=== PATIENT | male | born 1955 | race Caucasian/White ===

== ENCOUNTER 2019-03-17 10:41 | Emergency (ER) | payer MEDICARE, OTHER ==
[2019-03-17 11:09] LABS: BASOPHILS % (AUTO) 0.2 %; EOSINOPHILS % (AUTO) 0.1 %; HGB - HEMOGLOBIN 14.7 g/dL (14.0-18.0); LYMPHOCYTES # (AUTO) 0.8 10^3/uL (1.5-3.5); LYMPHOCYTES % (AUTO) 6.4 %; MEAN PLATELET VOLUME 9.7 fL (7.4-11.4); MONOCYTES # (AUTO) 0.6 10^3/uL (0.0-1.0); MONOCYTES % (AUTO) 4.6 %; NEUTROPHILS # (AUTO) 10.7 10^3/uL (1.5-6.6); NEUTROPHILS % (AUTO) 88.4 %; PLT - PLATELET COUNT 231 10^3/uL (130-450); RED BLOOD COUNT 4.32 10^6/uL (4.70-6.10); RED CELL DISTRIBUTION WIDTH 12.3 % (12.0-15.0); WHITE BLOOD COUNT 12.1 x10^3/uL (4.8-10.8)
--- NOTE | 2019-03-17 11:21 | ED Physician Documentation ---
PD HPI SYNCOPE - Stated complaint Stated Complaint: MED REACTION/SEIZURE LIKE - Chief complaint Chief Complaint: General - History obtained from History obtained from: Patient - History of Present Illness Witnessed: Witnessed Timing - onset: How many minutes ago (30), Today Duration: Minutes (1-2) Preceding symptoms: Vision changes, Nausea / vomiting (felt mild nausea and lightheaded. Then awoke with head on table. [place] more nausetated after taht and vomiting several minutes later. Started feeling better after that.), Light headed Associated symptoms: Incontinant of stool, Nausea / vomiting. No: Seizure, Headache, Chest pain, Dyspnea, Abdominal pain Contributing factors: Recent med change (he had root canal and dental work yesterday. Rx Clindamycin for gum infection and norco for pain. He took those this morning and then was sitting at table to have breakfast. Had a few bites of it and then had abrupt vision cloudiness, feeling lightheaded and says his eyes rolled back and then he slumped head forward and was unresponsive for 1-2 minutes. Awake and conversant by time of EMS arrival. He did have nausea and then emesis once after awakening. Feeling improved enroute.) Review of Systems Constitutional: denies: Fever, Chills Nose: denies: Rhinorrhea / runny nose, Congestion Throat: reports: Dental pain / toothache. denies: Sore throat Respiratory: denies: Cough GI: reports: Nausea, Vomiting (once after the syncopal episode). denies: Abdominal Pain, Diarrhea Skin: denies: Rash, Lesions Neurologic: reports: Generalized weakness, Syncope. denies: Focal weakness, Numbness, Confused, Headache, Head injury PD PAST MEDICAL HISTORY - Past Medical History Past Medical History: No Cardiovascular: None Respiratory: None Neuro: None Endocrine/Autoimmune: None - Past Surgical History Past Surgical History: Yes - Present Medications Home Medications: Ambulatory Orders Medication Instructions Recorded Confirmed Amoxicillin 875 mg PO BID #14 tablet 03/17/19 - Allergies Allergies/Adverse Reactions: Allergies Allergy/AdvReac Type Severity Reaction Status Date / Time Latex, Natural Rubber Allergy Rash Verified 03/17/19 10:50 clindamycin AdvReac Unknown Verified 03/17/19 15:38 hydrocodone AdvReac Unknown Verified 03/17/19 15:38 - Social History Does the pt smoke?: No Smoking Status: Never smoker Does the pt drink ETOH?: No Does the pt have substance abuse?: No - Immunizations Immunizations are current?: Yes PD ED PE NORMAL - Vitals Vital signs reviewed: Yes - General General: Alert and oriented X 3, No acute distress, Well developed/nourished - HEENT HEENT: Atraumatic, PERRL, Moist mucous membranes, Pharynx benign - Neck Neck: Supple, no meningeal sign, No adenopathy - Cardiac Cardiac: RRR, No murmur - Respiratory Respiratory: Clear bilaterally - Abdomen Abdomen: Soft, Non tender - Male Male : Deferred - Rectal Rectal: Deferred - Back Back: No CVA TTP - Derm Derm: Normal color, Warm and dry - Neuro Neuro: Alert and oriented X 3, 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, No motor deficit, No sensory deficit, Normal speech, Other Eye Opening: Spontaneous Motor: Obeys Commands Verbal: Oriented GCS Score: 15 Results - Vitals Vitals: Vital Signs - 24 hr 03/17/19 03/17/19 03/17/19 10:45 13:26 14:06 Temperature 36.7 C Heart Rate 65 80 Heart Rate [ Sitting] Heart Rate [ Standing] Heart Rate [ 83 Supine] Respiratory 18 21 Rate Blood Pressure 138/54 H 106/53 L Blood Pressure [Sitting] Blood Pressure [Standing] Blood Pressure 122/49 L [Supine] O2 Saturation 97 99 03/17/19 14:07 Temperature Heart Rate Heart Rate [ 74 Sitting] Heart Rate [ 83 Standing] Heart Rate [ 71 Supine] Respiratory Rate Blood Pressure Blood Pressure 118/49 L [Sitting] Blood Pressure 122/49 L [Standing] Blood Pressure 113/59 L [Supine] O2 Saturation Oxygen O2 Source Room air - EKG (time done) 11:00 Rate: Rate (enter#) (55) Rhythm: Sinus bradycardia [place]: Normal Intervals: Normal [place] QRS: Normal Ischemia: Normal ST segments. No: ST elevation c/w ischemia, ST depression - Labs Labs: Laboratory Tests 03/17/19 03/17/19 03/17/19 10:31 10:31 10:31 WBC RBC Hgb Hct MCV MCH MCHC RDW Plt Count MPV Neut # (Auto) Lymph # (Auto) Hardy # (Auto) Eos # (Auto) Baso # (Auto) Absolute Nucleated RBC Nucleated RBC % Sodium Potassium Chloride Carbon Dioxide Anion Gap BUN Creatinine Estimated GFR (MDRD) Glucose POC Whole Bld Glucose Calcium Magnesium 1.9 Total Bilirubin AST ALT Alkaline Phosphatase Troponin I High Sens 2.7 B-Natriuretic Peptide 98 Total Protein Albumin Globulin Albumin/Globulin Ratio Lipase 03/17/19 03/17/19 03/17/19 11:02 11:02 11:03 WBC 12.1 H RBC 4.32 L Hgb 14.7 Hct 44.5 MCV 103.0 H MCH 34.0 H MCHC 33.0 RDW 12.3 Plt Count 231 MPV 9.7 Neut # (Auto) 10.7 H Lymph # (Auto) 0.8 L Hardy # (Auto) 0.6 Eos # (Auto) 0.0 Baso # (Auto) 0.0 Absolute Nucleated RBC 0.00 Nucleated RBC % 0.0 Sodium 141 Potassium 3.9 Chloride 104 Carbon Dioxide 29 Anion Gap 8.0 BUN 12 Creatinine 0.9 Estimated GFR (MDRD) 85 L Glucose 116 H POC Whole Bld Glucose 83 Calcium 9.1 Magnesium Total Bilirubin 0.8 AST 28 ALT 35 Alkaline Phosphatase 55 Troponin I High Sens B-Natriuretic Peptide Total Protein 6.9 Albumin 4.1 Globulin 2.8 Albumin/Globulin Ratio 1.5 Lipase 24 - Rads (name of study) chest xray Radiology: Prelim report reviewed (no acute process), See rad report PD MEDICAL DECISION MAKING - ED course Complexity details: considered differential (sounds likely vasovagal episode f rom nausea from meds taken shortly prior to symptoms. Had just eaten some so some full stomach. Emesis after awakening without findings to suggest aspiration. ), d/w patient Departure - Departure Disposition: 01 Home, Self Care Clinical Impression: Medication side effect Syncope Qualifiers: Syncope type: vasovagal syncope Qualified Code(s): R55 - Syncope and collapse Condition: Stable Record reviewed to determine appropriate education?: Yes Instructions: ED Syncope Vasovagal Follow-Up: JANINE HICKS MD [Primary Care Provider] - Prescriptions: Amoxicillin 875 mg PO BID #14 tablet Comments: I think your syncope (fainting episode) was caused by a side effect of the medi cations you took leading to upset stomach and then nausea and vomiting subsequently. Stop the clindamycin and hydrocodone. Use amoxicillin twice daily instead and just Tylenol for pain. Stay well-hydrated. There is no signs of a primary heart/cardiac cause of the episode based on the tests here today. Discharge Date/Time: 03/17/19 15:39
[2019-03-17 11:23] LABS: ALBUMIN 4.1 g/dL (3.2-5.5); ALBUMIN/GLOBULIN RATIO 1.5 (1.0-2.2); BILIRUBIN,TOTAL 0.8 mg/dL (0.2-1.0); CALCIUM 9.1 mg/dL (8.5-10.3); CREATININE 0.9 mg/dL (0.6-1.2); TOTAL PROTEIN 6.9 g/dL (6.7-8.2)
[2019-03-17] MEDS ORDERED: SODIUM CHLORIDE 0.9% 1,000 ML IV ONE (12:05)
[2019-03-17] MEDS ORDERED: KETOROLAC 15 MG/ML VIAL IVP STA (12:06)
[2019-03-17] MEDS ORDERED: ONDANSETRON 4 MG/2 ML VIAL IVP STA (12:06)
[2019-03-17] MEDS ORDERED: ACETAMINOPHEN 325 MG TABLET PO STA (12:06)
--- NOTE | 2019-03-17 12:50 | XRAY Report ---
Reason: chest pain Procedure Date: 03/17/2019 Accession Number: [id number] / [id number] Procedure: XR - Chest 1 View X-Ray CPT Code: 91888 FULL RESULT: EXAM: CHEST RADIOGRAPHY EXAM DATE: 03/17/2019 12:28 PM. CLINICAL HISTORY: Chest pain. COMPARISON: None. TECHNIQUE: 1 view. FINDINGS: Lungs/Pleura: No focal opacities evident. No pleural effusion. No pneumothorax. Mediastinum: Within exam limitations, the cardiomediastinal contour is normal. There is mild atherosclerotic calcification of the aortic arch. Other: No acute osseous abnormality. IMPRESSION: No acute cardiopulmonary abnormality. RADIA
[2019-03-17 14:08] VITALS: BP 113/59
== END 2019-03-17 15:39 | disposition home or self-care (01) ==
LOC: ED 10:41
DX: R55 Syncope and collapse (principal); T36.8X5A Adverse effect of other systemic antibiotics, initial encounter; T40.2X5A Adverse effect of other opioids, initial encounter; Y92.009 Unspecified place in unspecified non-institutional (private) residence as the place of occurrence of the external cause
CPT/HCPCS: 36415; 71045; 80053; 83690; 83735; 83880; 84484; 85025; 93005; 96361; 96374; 99284; A9270

== ENCOUNTER 2023-08-06 07:00 | Outpatient (CLI) | payer MEDICARE, OTHER ==
--- NOTE | 2023-08-06 19:46 | XRAY Report ---
PROCEDURE: Shoulder 2+V LT INDICATIONS: CONTUSION OF LEFT SHOULDER, fell on ice today TECHNIQUE: 3 views of the shoulder were acquired. COMPARISON: None. FINDINGS: Bones: No acute fracture of the shoulder. Minimal glenohumeral and acromioclavicular joint osteoarth rosis. Left sixth rib lateral fracture. Correlate with point tenderness. Soft tissues: No suspicious soft tissue calcifications. The visualized lungs are within normal limi ts. IMPRESSION: No acute osseous abnormality of the shoulder. Query left sixth rib lateral fracture. Correlate with point tenderness. Further evaluation with dedic ated rib radiographs can be performed if clinically indicated. Reviewed by: Margarette Bourne MD on 08/06/2023 7:44 PM PST Approved by: Margarette Bourne MD on 08/06/2023 7:44 PM PST Station ID: [id number]
--- NOTE | 2023-08-06 19:46 | XRAY Report ---
PROCEDURE: Chest 2V INDICATIONS: CONTUSION TO LEFT BACK WALL OF THORAX TECHNIQUE: 2 views of the chest were acquired. COMPARISON: None. FINDINGS: Surgical changes and devices: None. Lungs and pleura: No pleural effusions or pneumothorax. Lungs are clear. Mediastinum: Mediastinal contours appear normal. Heart size is normal. Bones and chest wall: No suspicious bony lesions. Overlying soft tissues appear unremarkable. IMPRESSION: No acute cardiopulmonary process. Reviewed by: Margarette Bourne MD on 08/06/2023 7:45 PM [facility] Approved by: Margarette Bourne MD on 08/06/2023 7:45 PM [facility] Station ID: [id number]
== END 2023-08-06 23:59 | disposition home or self-care (01) ==
LOC: DI.S 07:00
PROVIDERS: ATTEND Physician Assistant Medical
DX: S20.222A Contusion of left back wall of thorax, initial encounter (principal); S40.012A Contusion of left shoulder, initial encounter; R06.02 Shortness of breath